=== PATIENT | female | born 1975 | race Caucasian/White ===

== ENCOUNTER → 2019-03-28 13:18 | Outpatient (CLI) | payer OTHER, SELFPAY ==
[2014-10-19 05:32] VITALS: BMI 29.8
[2019-03-31 12:07] LABS: Age Gdln ACOG Testing 30-65 (.)
[2019-03-31 15:45] LABS: HPV APTIMA, High Risk Negative (Negative); HPV Reflexed? NOT INDICATED
== END ==
PROVIDERS: Visit Provider Obstetrics & Gynecology
DX: Z12.4 Encounter for screening for malignant neoplasm of cervix (principal)
CPT/HCPCS: 88175; G0145

== ENCOUNTER 2020-02-13 08:23 | Inpatient (IN) | payer OTHER, SELFPAY ==
[2020-02-01 11:33] LABS: Hemoglobin 13.8 g/dL (12.0-15.0); Mean Corp Hgb Conc 32.1 g/dL (32-36); Mean Corpuscular Hgb 29.7 pg (27.0-32.0); Mean Corpuscular Volume 92.7 fL (81-99); Mean Platelet Vol. 9.3 fl (6.2-12.0); Platelet Count 336 K/mm3 (150-450); RBC Distribution Width CV 12.7 % (11.6-14.6); RBC Distribution Width SD 43.1 fl (35.1-43.9); Red Blood Count 4.64 M/mm3 (4.2-5.4); White Blood Count 5.1 K/mm3 (4.4-11.0)
[2020-02-01 11:41] LABS: International Normalized Ratio 1.1; Prothrombin Time (Protime)PT. 13.6 SECONDS (11.7-14.9)
[2020-02-01 11:42] LABS: Partial Thromboplast Time 30.2 Seconds (24.1-36.2)
--- NOTE | 2020-02-12 16:57 | PCM.HP.BLA ---
History and Physical Date of Admission: 02/13/20 Surgical History and Physical Angelica Brown, a 45 year old female 2 0 0 0 2, presents for GENO/BS on February 13, 2020 at 10:30. -- Large Symptomatic Uterine Fibroids -- Enlarged uterus with multiple fibroids. Pt relates she also has spotting sporadicaly throughout the month with bloating. Has had 2 c-sections and no vaginal deliveries. Fibroids which began years ago. It is located in the lower abdomen. Angelica characterizes the quality annoying and no relief in sight. Severity is severe. It is aggravated by sitting down. Associated signs and symptoms are pressure on bladder and irregular bleeding. Additional comments are: Known fibroids, one 8 cm and other 6 cm. MEDICATIONS HISTORY: Patient is also takin. No Meds ALLERGIES: NKDA Infections - Chicken pox Illnesses - no serious past illnesses Accidents - no injuries of consequence Hospitalizations - see surgery fibroids; Review of Systems: GENERAL - Denies fever, or chills SKIN - Denies skin changes EYES - Denies visual changes EARS - Denies difficulty hearing NOSE - Denies nasal congestion or bleeding MOUTH - Denies sore throat or difficulty swallowing NECK - Denies pain or swelling RESPIRATORY - Denies shortness of breath or wheezing CARDIOVASCULAR - Denies palpitations or chest pain GASTROINTESTINAL - Denies nausea, vomiting, diarrhea, constipation GENITOURINARY - Denies dysuria, frequency of urination, incontinence of urine MUSCULOSKELETAL - Denies joint or muscle pain NEUROLOGICAL - Denies localized numbness or weakness PSYCHIATRIC - Denies depression or anxiety ENDOCRINE - Denies heat or cold intolerance, weight loss or gain HEMATO-IMMUNOLOGIC - Denies excesive bleeding with cuts SOCIAL HISTORY: Alcohol Use - denies drinking Smoking - Never Diet - balanced Diet Lifestyle - low stress lifestyle and Exercise - active Seat Belt Use - most of the time Employer - Self employed Job Description - Seamstress Illicit Drug Use - denies use of street drugs Sexual Activity - Residence - lives with Place of - [place], [place] Hours Worked - minimal Spouse-Sig Other Name - Jaspreet Spouse-Sig Other Occupation - [employer] assembly Spouse-Sig Other Phone No - [phone] cell Children Name(s) - Rene 12' EB, James (EB) Control - Prior Tubal FAMILY HISTORY: Mother: diabetes. Father: Heart Disease. Maternal Grandfather: DM II. MENSTRUAL HISTORY: LMP Known?- Approximate-Month KnownAmount/Duration - 4 to 5 days, Regularity - bleeds between periods, Frequency - monthly days, LMP - 01/26/20, Age Onset Menarche - 13 PAST PREGNANCIES: Total Pregnancies - 2; Full Term Pregnancies - 2; Premature - 0; Abortions, Induced - 0; Abortions, Spontaneous - 0; Ectopics - 0; Multiple Births - 0; Living Children - 2 SURGICAL HISTORY: 1. 10/19/2014 , and BTO ; Rossana Husain M.D. - prior C/S planned repeat, sterilization request. KNOWN FIBROIDS 2. Ear Surgery, ' ; - bone defect 3. 10/22/2011 ; Rossana Husain M.D. - complete placenta previa with vaginal bleeding PHYSICAL EXAM BP- 98/70 Sitting, Right arm, regular cuff Temp- 97.9 Taken Orally Weight- 133.24457 lbs Height- 60.00 inch BMI:26.19 CONSTITUTIONAL - NAD, well nourished, and well developed NEUROLOGICAL - Cranial nerves II-XII grossly intact PSYCHIATRIC - A and O to time, place, person, mood and affect PELVIC - 18 cm uterus External Genitial Vagina - non-tender without lesions Urethra/Urethral Meatus - non-tender Bladder - non-tender Vagina - no palpable lesions Cervix - without cervical motion tenderness and has normal size and features without evident lesions Uterus - enlarged. Multiple globular nodules noted, large one in lower uterine segment. Uterus less mobile Adnexa - non-diagnostic, compromised by pelvic mass ASSESSMENT/PLAN: Leiomyoma, Unspec Uterus remains enlarged at approx 16-17 wk size. Advised hysterectomy GENO and bilateral salpingectomy recommended. Uterus filling pelvis and now with bladder sx of urinary incontinence , urinary frequency both likely due to lower uterine segment fibroid. Advised re anticipated surgical procedure, postop recovery including activity restriction for 4-6 wk to allow healing.
[2020-02-13] VITALS (12 sets, daily range): BP systolic 100–120; BP diastolic 58–82; PULSE 63–100; RESP 16; TEMP 36.1–37.2; O2SAT 96–100; BMI 26.2
[2020-02-13] MEDS: Lactated Ringers 1,000 ML 100 ML IV (09:30)
--- NOTE | 2020-02-13 10:50 | HYST_PTH ---
PATIENT: JELANI WOMACK LOC: [facility]3 U#:[id number] AGE/SX: 45/F ROOM: [facility]319 RE02/13/[address]: Dr. Crescencio Mullen MD : 1975 BED: 1 DIS: 02/14/2020 SPEC #: [id number] RECD: 02/13/20 13:15 STATUS: DUC KATRINA #: [id number] TINO: 02/13/20 10:[address]: Crescencio Mullen DEPT: SURGICAL PATHOLOGY RECD BY: Noel Dubon ENTERED: 02/13/20 13:33 SP TYPE: HYSTERECT OTHR DR: Dr. Casi Bender MD Tissues: Uterus, NOS Procedures: Decalcification bone/plaque Surgery Specimen Level V HEADER OPERATION: Total abdominal hysterectomy, bilateral salpingectomy PRE-OP DIAGNOSIS: Leiomyoma TISSUE SUBMITTED: Uterus, cervix, bilateral fallopian tubes MICROSCOPIC DIAGNOSIS Uterus, cervix, bilateral fallopian tubes, total abdominal hysterectomy and bilateral salpingectomy: Cervix - mild chronic inflammation. Endometrium - secretory endometrium. Myometrium - intramural leiomyomas (largest measuring 12 cm in greatest dimension). Attached fallopian tube - focal hematosalpinx. Detached fallopian tube - no pathologic diagnosis. See comment. SJ:chintan 02/15/20 COMMENT The largest leiomyoma shows extensive calcification and degenerative changes. MICROSCOPIC DESCRIPTION Slides are reviewed. GROSS DESCRIPTION Received in fixative is one container labeled with the patient's name and designated uterus, cervix, bilateral fallopian tubes. The specimen consists of a hysterectomy specimen consisting of uterus with cervix and attached one fallopian tube and detached second fallopian tube. The uterus with cervix weighs 708 gm and measures 15 x 15 x 9 cm. The body of the uterus is distorted. A focal ragged area is noted. The ectocervical mucosa is unremarkable. The external os is circular in contour. The endocervical canal measures 4 cm in length and endocervical mucosa is unremarkable. The endometrial cavity is compressed to one side and measures 6 cm in length and up to 2 cm in width. The endometrium is congested without any mass lesion and measures 0.5 cm thickness. Sections of the uterine wall reveal a large calcified nodular mass measuring 12 cm in greatest dimension. Multiple smaller intramural nodular masses are also noted. The attached fallopian tube measures 6 cm in length and 0.6 cm in diameter. The fimbrial end is identified. The detached fallopian tube is received in multiple pieces measuring 4.5 cm in length and 0.5 cm in diameter. The fimbrial end is present. Filshie clips are noted on both fallopian tubes which appear intact. Also present in the container is a detached piece of soft tissue measuring 5 x 2.5 x 0.5 cm. More dictation will follow after overnight fixation. / SJ:chintan 02/13/20 Sections of the attached fallopian tube reveal focally dilated lumen filled with clear fluid. Sections reveal unremarkable cut surfaces. Sections of the smaller nodular masses reveal pierre whorled cut surfaces without areas of hemorrhage, necrosis or cystic degeneration. The uninvolved uterine wall measures up to 3 cm in thickness. Rn Patient Services sections are submitted in 12 cassettes as follows: 1 - anterior cervix, 2??posterior cervix, 3 & 4 - anterior uterine wall, 5 & 6 - posterior uterine wall, 7-9 - largest nodular mass (7 is submitted after decalcification), 10 - smaller nodular masses, 11 -attached fallopian tube, 12??detached fallopian tube. / ZOEY:chintan 02/14/20 TC:1 CPT: 94090, 39356
[2020-02-13] MEDS: Cefotetan 2 GM in 0.9% NS 100 ML IV (11:03)
--- NOTE | 2020-02-13 12:52 | PCM.OPRPT ---
Report of Operation Date of Procedure: 02/13/20 Pre-Operative Diagnosis: Large Symptomatic Uterine Fibroids Post-Operative Diagnosis: Large Symptomatic Uterine Fibroids Surgery/Procedure Performed:: Total Abdominal Hysterectomy and Bilateral Salpingectomy Description of Surgical Findings:: 16 cm uterus with normal-appearing fallopian tubes and ovaries. Approximately a 10 cm anterior left uterine fibroid. vehicle delivery worker: Sohail Salgado Type of Anesthesia:: General - Endotracheal Anesthesiologist: Carl Nash Specimen's removed: Uterus and bilateral fallopian tubes Drains: Lira to straight drain Estimated Blood Loss (mL): 100 cc Fluids Replaced: Crystalloid Description of Procedure: Surgeon: Crescencio Mullen MD, FACOG Indications: This is a 45-year-old patient who his been having problems with symptomatic uterine fibroids. Given this the patient desires that we proceed with the above procedure. She has been counseled regarding the risk and indications of this procedure including the possibility of bleeding, infection, and injury to surrounding structures such as bowel bladder. All questions were answered. Procedure: Patient was taken to the operating room where after induction of general anesthesia she was prepped and draped in the usual sterile fashion. A Lira catheter was placed. The abdomen was entered through the patient's prior Pfannenstiel incision and peritoneal cavity was entered bluntly. Ryland retractor was placed. Round ligaments were identified and ligated with 0 Vicryl suture. Mesosalpinx was ligated with 0 Vicryl suture to the round ligament. A bladder flap was developed and progressive bites were then taken down on either side of the uterine cervix ligating each pedicle with 0 Vicryl suture. Final bites across the vaginal cuff incorporated the uterosacral ligaments into the vaginal cuff using 0 Vicryl suture and multiple [id number] sutures were placed across the vaginal cuff. Vaginal cuff and pelvic sidewall pedicles were oversewn where necessary to achieve hemostasis. Peristalsis of the right and left ureters were noted. Pelvis was copiously irrigated removing all clot. Ryland retractor was removed and rectus abdominis muscles were reapproximated in the midline with interrupted 0 Vicryl suture. 0 PDS strata fix was used to close the fascia in a running fashion and subcutaneous tissue was copiously irrigated with saline solution before closing with 3-0 Vicryl suture. 4-0 Monocryl suture was then used in running fashion to reapproximate skin edges area and Steri-Strips placed across the incision. Patient tolerated the procedure well was taken to recovery room in satisfactory condition; sponge instrument and needle counts were all reportedly correct. Estimated blood loss for the case was less than 100 cc. Cefotan g IV was given prior to beginning the operative procedure. There were no apparent complications of the surgery. Specimen to pathology was uterus and bilateral fallopian tubes. Grafts/Implants Used: None - Complications None - Admit VTE Documentation VTE Present on Admission: Yes VTE Mechan Device Prophylaxis: SCD's VTE Pharm Prophylaxis ordered?: Yes
--- NOTE | 2020-02-13 12:58 | DCINST_ITS ---
Discharge Diet: No Restrictions Discharge Activity: Return to Normal Activity - do what you feel comfortable, but do not over do it. You may climb stairs, just use caution and hold the railing., May Not Drive - for a few days or while taking narcotic pain medications., May Shower, May Take a Tub Bath May resume sexual activity in: 6 weeks - nothing in the vagina. Lifting Restrictions: 25 pounds for 6 weeks. Call your doctor if your incision/area has: Continuous Slow Oozing, Sudden Increased Bleeding, Increased Pain/ Swelling, Increased Redness, Foul Smelling Discharge Call your doctor if you observe: Fever of 101 or Higher, Inability to urinate, Inability to have a bowel movement, Using more than one pad per hour, - - Some vaginal bleeding may be noted for up to 4-8 weeks. Cleanse incision/area with: - - Let the soapy water run over your incision, rinse and pat dry. Additional Dressing/Incision Instructions:: The white strips (Steri Strips) on your incision will fall off on their own. Allergies/Adverse Reactions: Allergies No Known Allergies Allergy (Verified 02/13/20 09:12) Medications to take at Discharge Multivitamin [Daily Multiple Vitamin] 1 ea PO DAILY 07/04/19 Docusate Sodium [Colace] 100 mg PO BID PRN PRN #60 cap 02/13/20 Oxycodone [Oxyir] 5 mg PO Q6H PRN PRN 7 Days #20 tablet 02/13/20 The following prescriptions were given: Docusate Sodium [Colace] 100 mg PO BID PRN PRN #60 cap PRN Reason: Constipation Transmission Status: Pending to [facility] Oxycodone [Oxyir] 5 mg PO Q6H PRN PRN 7 Days #20 tablet PRN Reason: Pain Score 6-10 Transmission Status: Sent to [facility] Primary Care Physician: Casi Bender MD [Primary Care Provider] - Test Results: Test results from this visit will be discussed in further detail at your follow- up appointment, if applicable. Please Follow Up With: Crescencio Mullen MD - [phone] When: in 2 weeks, please call to make an appointment.
[2020-02-13] MEDS: Dextrose 5%-Lactated Ringers 1,000 ML 150 ML IV ×2 (15:16→22:28)
[2020-02-13] MEDS: HYDROmorphone 1 MG/ML Syringe IV (15:57)
[2020-02-13] MEDS: 0.9% Saline Lock 10 ML Syringe IV (15:58)
[2020-02-13] MEDS: Enoxaparin 30 MG/0.3 ML Syringe SC (17:38)
[2020-02-13] MEDS: Ketorolac 30 MG/ML Syringe IV (17:39)
[2020-02-13] MEDS: oxyCODONE 5 MG Tablet PO (21:53)
[2020-02-13] MEDS: Docusate Sodium 100 MG Capsule PO (21:53)
[2020-02-14] MEDS: Ketorolac 30 MG/ML Syringe IV ×3 (00:12→12:13)
[2020-02-14 01:30] VITALS: BP 113/75; PULSE 79; RESP 16; TEMP 36.8; O2SAT 99
[2020-02-14 05:56] LABS: Hematocrit 33.1 % (37-47); Hemoglobin 10.8 g/dL (12.0-15.0); Mean Corp Hgb Conc 32.6 g/dL (32-36); Mean Corpuscular Hgb 30.5 pg (27.0-32.0); Mean Corpuscular Volume 93.5 fL (81-99); Mean Platelet Vol. 9.7 fl (6.2-12.0); Platelet Count 221 K/mm3 (150-450); RBC Distribution Width CV 13.2 % (11.6-14.6); RBC Distribution Width SD 45.6 fl (35.1-43.9); Red Blood Count 3.54 M/mm3 (4.2-5.4); White Blood Count 7.7 K/mm3 (4.4-11.0)
[2020-02-14 06:35] LABS: Creatinine, Serum 0.82 mg/dL (0.55-1.02); EST Glomerular Filtration Rate 80 mL/min (>60); Est Glom Filt Rate - Afr Amer 97 mL/min (>60); Estimated Creatinine Clearance 62.23 ml/min
[2020-02-14 08:00] VITALS: O2SAT 98
[2020-02-14] MEDS: Acetaminophen 500 MG Tablet 1000 MG PO (08:46)
[2020-02-14 08:49] VITALS: BP 118/75; PULSE 72; RESP 16; TEMP 36.8; O2SAT 100
--- NOTE | 2020-02-14 09:20 | PCM.PN.OB ---
Subjective: Patient without complaints. Tolerating diet well but still not on full diet. Positive flatus and able to void on own with catheter out. Considering discharge home later today. Objective: Wound is clean, dry, intact with Mepilex dressing in place. Good urine output. Hemoglobin and creatinine okay. Minimal vaginal bleeding reported. - Physical Exam Vitals/I&O's: Vital Signs Temp Pulse Resp BP Pulse Ox 98.3 F 72 16 118/75 100 02/14/20 08:49 02/14/20 08:49 02/14/20 08:49 02/14/20 08:49 02/14/20 08:49 Oxygen Delivery Method Room Air Weight: 134 lb 4.184 oz Body Mass Index (BMI) 26.2 Intake and Output for Last 24 Hours 02/12/20 02/13/20 02/14/20 23:59 23:59 23:59 Intake Total 2350 / 2550 1800 / 1800 Output Total 255 / 615 1360 / 1360 Balance 2095 / 1935 440 / 440 Laboratory Results 02/14/20 05:40: WBC 7.7, RBC 3.54 L, Hgb 10.8 L, Hct 33.1 L, MCV 93.5, MCH 30.5, MCHC 32.6, RDW Std Deviation 45.6 H, RDW Coeff of Ubaldo 13.2, Plt Count 221, MPV 9.7 02/14/20 05:40: Creatinine 0.82, Estim Creat Clear Calc 62.23, Est GFR (MDRD) Af Amer 97, Est GFR (MDRD) Non-Af 80 Current Medications Acetaminophen (Acetaminophen 500 Mg Tablet) 1,000 mg PO Q8H PRN PRN PRN Reason: Pain Score 1-3/10 or Fever Last Admin: 02/14/20 08:46 Dose: 1,000 mg Documented by: Docusate Sodium (Docusate Sodium 100 Mg Capsule) 100 mg PO BID PRN PRN PRN Reason: Constipation Last Admin: 02/13/20 21:53 Dose: 100 mg Documented by: Hydromorphone HCl (Hydromorphone 1 Mg/Ml Syringe) 0.5 - 1.5 mg IV Q3H PRN PRN PRN Reason: Pain Score 4-10 Last Admin: 02/13/20 15:57 Dose: 0.5 mg Documented by: Ketorolac Tromethamine (Ketorolac 30 Mg/Ml Syringe) 30 mg IV Q6H SRIKANTH Stop: 02/18/20 18:01 Last Admin: 02/14/20 05:52 Dose: 30 mg Documented by: Ondansetron HCl (Ondansetron 4 Mg/2 Ml Vial) 4 mg IV Q4H PRN PRN PRN Reason: NAUSEA Oxycodone HCl (Oxycodone 5 Mg Tablet) 5 - 10 mg PO Q4H PRN PRN PRN Reason: Pain Score 4-10 Last Admin: 02/13/20 21:53 Dose: 5 mg Documented by: Simethicone (Simethicone 80 Mg Tablet) 80 mg PO PCHS SRIKANTH Last Admin: 02/14/20 08:44 Dose: 80 mg Documented by: Sodium Chloride (0.9% Saline Lock 10 Ml Syringe) 10 - 40 ml IV UD PRN PRN Reason: SALINE FLUSH Last Admin: 02/13/20 15:58 Dose: 10 ml Documented by: Medical Necessity - Tobacco Use Smoking Status: Never smoker Tobacco Use: Non-smoker Assessment/Plan Doing well postoperative day #1 status post total abdominal hysterectomy and bilateral salpingectomy for large symptomatic uterine fibroids. Home-going instructions given since patient is considering going home later today.
[2020-02-14 10:00] VITALS: RESP 16; O2SAT 97
--- NOTE | 2020-02-14 10:40 | CASEMGMT ---
RN JONNY AUTOMOTIVE TECHNICIAN INSTRUCTOR CM to room to meet with patient for initial transition planning/care coordination assessment. EMELI FULLER introduced self and role at [facility]. Pt voices understanding and consents to assessment at this time. Pt sitting up in recliner chair in room in no distress at this time. Jaspreet, in room visiting. Pt is A/O at this time and answers all questions appropriately. Care providers, pharmacy, and demographics verified/updated at this time. PCP: NADEEM Molina @ [facility] Preferred Pharmacy: [facility] Insurance: [employer] Prescription Benefit: Pt/ think so Living Will/HPOA: States does not have LW or HCPOA . Interested in more information but states does not want to talk with SW at this time to complete paperwork. Provided information on advanced directives and given Social Service rac card with number to call if chooses in the future to utilize [facility] social work for advanced directive completion. Educated patient that, if patient so chooses, can come back to [facility] and meet with a SW as an outpatient to complete health care advanced directives. Patient expresses understanding. LNOK: Jaspreet. Living Arrangements: Lives in 2-story home w/ and 2 sons. Denies difficulty with stairs. Bedroom and bath on 2nd floor. Independent Transportation: Hires drivers. Denies transportation concerns. DME: Denies using any DME and denies needs. HHC/SNF: No history of either. No needs identified. Pt wishes to return home and states has no concerns with going home at time of discharge. CM to follow for any discharge planning/needs. Pt voices no concerns/needs at this time. Advised pt to ask for CM if any questions/concerns/needs arise. Voices understanding. PLAN: Home Taina JULIEN RN, CM
[2020-02-14] MEDS: 0.9% Saline Lock 10 ML Syringe IV (12:13)
[2020-02-14 12:41] VITALS: BP 122/68; PULSE 63; RESP 16; TEMP 36.8; O2SAT 100
--- NOTE | 2020-02-14 14:22 | PHA.DC.MR ---
Pharmacy Service has performed discharge medication reconciliation for this patient. The patient's discharge medication list was reviewed for discrepancies and discrepancies were resolved. Home Medications Multivitamin [Daily Multiple Vitamin] 1 ea PO DAILY 07/04/19 Docusate Sodium [Colace] 100 mg PO BID PRN PRN #60 cap 02/13/20 Oxycodone [Oxyir] 5 mg PO Q6H PRN PRN 7 Days #20 tab 02/13/20
[2020-02-14] MEDS: oxyCODONE 5 MG Tablet PO (15:50)
[2020-02-14] MEDS: Docusate Sodium 100 MG Capsule PO (15:50)
[2020-02-14 16:30] VITALS: BP 100/76; PULSE 73; RESP 16; TEMP 36.7; O2SAT 96
== END 2020-02-14 17:00 | disposition home or self-care (01) | DRG 743 ==
LOC: ACINP 08:24 → MS3 15:05
PROVIDERS: Admitting Provider Obstetrics & Gynecology; Referring Provider Obstetrics & Gynecology; Visit Provider Obstetrics & Gynecology
PROC: 0UT90ZZ Resection of Uterus, Open Approach (ICD-10-PCS; CPT 58150; principal; 2020-02-13 10:30)
DX: D25.9 Leiomyoma of uterus, unspecified (principal); N92.6 Irregular menstruation, unspecified; Z98.891 History of uterine scar from previous surgery
CPT/HCPCS: 36415; 82565; 85027; 85610; 85730; 86850; 86900; 86901; 88307; 88311; 99251; J7120; A4216; G0463; J2405